=== PATIENT | male | born 1955 | race Asian ===

== ENCOUNTER 2023-07-26 11:13 | Outpatient (CLI) | payer OTHER, SELFPAY | END 2023-07-26 11:14 | disposition home or self-care (01) | PROVIDERS: PCP Family Medicine; Visit Provider Family Medicine | DX: E78.2 Mixed hyperlipidemia (principal); I10 Essential (primary) hypertension; Z12.5 Encounter for screening for malignant neoplasm of prostate | CPT/HCPCS: 80048; 80061; 84153 ==

== ENCOUNTER 2024-07-29 11:32 | Outpatient (CLI) | payer OTHER, SELFPAY | END 2024-07-29 11:33 | disposition home or self-care (01) | PROVIDERS: PCP Family Medicine; Visit Provider Family Medicine | DX: E78.2 Mixed hyperlipidemia (principal); I10 Essential (primary) hypertension; Z13.29 Encounter for screening for other suspected endocrine disorder; Z13.21 Encounter for screening for nutritional disorder | CPT/HCPCS: 80048; 80061; 82607; 84443 ==

== ENCOUNTER 2025-08-16 15:05 | Outpatient (CLI) | payer OTHER, SELFPAY | END 2025-08-16 15:06 | disposition home or self-care (01) | PROVIDERS: PCP Family Medicine; Visit Provider Family Medicine | DX: I10 Essential (primary) hypertension (principal); E78.2 Mixed hyperlipidemia; Z12.5 Encounter for screening for malignant neoplasm of prostate | CPT/HCPCS: 80048; 80061; G0103 ==